=== PATIENT | female | born 1940 | race Caucasian/White ===

== ENCOUNTER 2017-09-26 12:56 | Emergency (ER) | payer MEDICARE ==
[2017-09-26 14:29] VITALS: BP 135/70
--- NOTE | 2017-09-26 14:36 | UC ---
Skin Complaint HPI - HPI Summary HPI Summary: Pt c/o sudden onset of itchy rash that began 1 week ago and has worsened over the last few days. - History of Current Complaint Time Seen by Provider: 09/26/17 14:12 Stated Complaint: SKIN COMPLAINT Hx Obtained From: Patient ?: No Onset/Duration: Sudden Onset, Worse Since - onset Skin Exposure Onset/Duration: Weeks Ago - 1 Timing: Constant Onset Severity: Mild Current Severity: Moderate Pain Intensity: 0 Location: Generalized Character: Pruritus, Redness, Raised Aggravating Factor(s): Nothing Alleviating Factor(s): Unknown Associated Signs & Symptoms: Positive: Rash Related History: Possible Reaction to: Insect - Allergy/Home Medications Allergies/Adverse Reactions: Allergies Allergy/AdvReac Type Severity Reaction Status Date / Time hydrocodone Allergy Constipatio Verified 09/26/17 14:17 n neomycin Allergy Rash Verified 09/26/17 14:17 oxycodone Allergy Headache Verified 09/26/17 14:17 Penicillins Allergy Rash Verified 09/26/17 14:17 propoxyphene Allergy Headache Verified 09/26/17 14:17 Obzahhy-[id number] Reductase Allergy Muscle Ache Verified 09/26/17 14:17 Inhibitor salt tablets AdvReac Vomiting Uncoded 09/26/17 14:17 Home Medications: Home Medications ALPRAZolam TAB* [Xanax TAB*] 0.5 mg PO TID PRN 09/26/17 [History Confirmed 09/26] Levothyroxine TAB* [Synthroid TAB*] 50 mcg PO DAILY 09/26/17 [History Confirmed 09/26/17] Loratadine 10 mg PO DAILY PRN 09/26/17 [History Confirmed 09/26/17] Metoclopramide TAB* [Reglan TAB*] 5 mg PO Q8H 09/26/17 [History Confirmed ] Review of Systems Constitutional: Negative Skin: Rash Eyes: Negative ENT: Negative Respiratory: Negative Cardiovascular: Negative Gastrointestinal: Negative Genitourinary: Negative Motor: Negative Neurovascular: Negative Musculoskeletal: Negative Neurological: Negative Psychological: Negative Is Patient Immunocompromised?: No All Other Systems Reviewed And Are Negative: Yes PMH/Surg Hx/FS Hx/Imm Hx Previously Healthy: Yes Endocrine History: Hypothyroidism Cardiovascular History: Cardiac Disease Psychological History: Anxiety - Surgical History Surgical History: Yes Surgery Procedure, Year, and Place: hysterectomy. appendectomy. fissure. sphincter repair. deviated septum. benign growth on nose. gall bladder removed - Family History Known Family History: Positive: Cardiac Disease - Social History Occupation: Retired Lives: Alone Alcohol Use: None Substance Use Type: None Smoking Status (MU): Former Smoker Have You Smoked in the Last Year: No When Did the Patient Quit Smoking/Using Tobacco: 2010 Physical Exam Triage Information Reviewed: Yes Appearance: Well-Appearing Vital Signs: Initial Vital Signs Temp 97.9 F 09/26/17 14:25 Pulse 65 09/26/17 14:25 Resp 18 09/26/17 14:25 BP 135/70 09/26/17 14:25 Pulse Ox 97 09/26/17 14:25 Vital Signs Reviewed: Yes Eye Exam: Normal ENT: Positive: Hearing grossly normal Neck exam: Normal Respiratory Exam: Normal Respiratory: Positive: No respiratory distress Musculoskeletal Exam: Normal Neurological Exam: Normal Psychological Exam: Normal Skin Exam: Other - multiple scabs upper extremities, trunk,betgween finger, lucila tracts Skin: Positive: rashes Course/Dx - Differential Diagnoses - Skin Complaint Differential Diagnoses: Contact Dermatitis, Scabies - Diagnoses Provider Diagnoses: scabies Discharge - Sign-Out/Discharge Documenting (check all that apply): Discharge - Discharge Plan Condition: Stable Disposition: HOME Prescriptions: Cetirizine* [ZyrTEC 10 MG TAB*] 10 mg PO DAILY #10 tab Permethrin 5% CREAM* 1 applic TOPICAL SEE INSTRUCTIONS #1 tube predniSONE TAB* [Deltasone TAB*] 20 mg PO DAILY #4 tab Patient Education Materials: Scabies (ED) Referrals: SONYA Mathwes [Primary Care Provider] - If Needed - Billing Disposition and Condition Condition: STABLE Disposition: HOME
== END 2017-09-26 14:48 | disposition home or self-care (01) ==
LOC: UCCORT 12:56
DX: B86 Scabies (principal); Z87.891 Personal history of nicotine dependence; Z88.3 Allergy status to other anti-infective agents; Z88.0 Allergy status to penicillin; Z88.5 Allergy status to narcotic agent; Z88.8 Allergy status to other drugs, medicaments and biological substances
CPT/HCPCS: 99212; G0463

== ENCOUNTER 2017-10-12 13:18 | Emergency (ER) | payer MEDICARE ==
[2017-10-12 14:24] VITALS: BP 96/63
--- NOTE | 2017-10-12 14:37 | UC ---
Skin Complaint HPI - HPI Summary HPI Summary: Pt presents with c/o pruritic skin around neck and scalp. Pt was treated for scabies a "couple weeks ago" and states symptoms have improved except around neck and on scalp. - History of Current Complaint Chief Complaint: [facility] Time Seen by Provider: 10/12/17 14:25 Stated Complaint: SKIN COMPLAINT Hx Obtained From: Patient ?: No Onset/Duration: Sudden Onset Skin Exposure Onset/Duration: Weeks Ago Timing: Constant Onset Severity: Mild Current Severity: Mild Pain Intensity: 5 Location: Discrete Character: Pruritus, Redness, Raised Aggravating Factor(s): Touch Alleviating Factor(s): Other - previous prescrition. Associated Signs & Symptoms: Positive: Rash Related History: Possible Reaction to: Insect - scabies - Allergy/Home Medications Allergies/Adverse Reactions: Allergies Allergy/AdvReac Type Severity Reaction Status Date / Time hydrocodone Allergy Constipatio Verified 09/26/17 14:17 n neomycin Allergy Rash Verified 09/26/17 14:17 oxycodone Allergy Headache Verified 09/26/17 14:17 Penicillins Allergy Rash Verified 09/26/17 14:17 propoxyphene Allergy Headache Verified 09/26/17 14:17 Yaicfak-Jzh-Psf Reductase Allergy Muscle Ache Verified 09/26/17 14:17 Inhibitor salt tablets AdvReac Vomiting Uncoded 09/26/17 14:17 Home Medications: Home Medications Omeprazole 20 mg PO DAILY 10/12/17 [History Confirmed 10/12/17] Review of Systems Constitutional: Negative Skin: Rash Eyes: Negative ENT: Negative Respiratory: Negative Cardiovascular: Negative Gastrointestinal: Negative Genitourinary: Negative Motor: Negative Neurovascular: Negative Musculoskeletal: Negative Neurological: Negative Psychological: Negative Is Patient Immunocompromised?: No All Other Systems Reviewed And Are Negative: Yes PMH/Surg Hx/FS Hx/Imm Hx Previously Healthy: Yes Cardiovascular History: Cardiac Disease - Surgical History Surgical History: Yes Surgery Procedure, Year, and Place: hysterectomy. appendectomy. fissure. sphincter repair. deviated septum. benign growth on nose. gall bladder removed - Family History Known Family History: Positive: Cardiac Disease - Social History Occupation: Retired Lives: Alone Alcohol Use: None Substance Use Type: None Smoking Status (MU): Former Smoker Have You Smoked in the Last Year: No When Did the Patient Quit Smoking/Using Tobacco: 2010 Physical Exam Triage Information Reviewed: Yes Appearance: Well-Appearing Vital Signs: Initial Vital Signs Temp 98 F 10/12/17 14:17 Pulse 74 10/12/17 14:17 Resp 17 10/12/17 14:17 BP 96/63 10/12/17 14:17 Pulse Ox 98 10/12/17 14:17 Vital Signs Reviewed: Yes Eye Exam: Normal ENT: Positive: Hearing grossly normal Dental Exam: Other Neck exam: Other - lucila tracts, upper chext and around base of neck Respiratory Exam: Normal Cardiovascular Exam: Normal Musculoskeletal Exam: Normal Neurological Exam: Normal Psychological Exam: Normal Skin: Positive: rashes Course/Dx - Differential Diagnoses - Skin Complaint Differential Diagnoses: Scabies, Urticaria - Diagnoses Provider Diagnoses: scabies Discharge - Sign-Out/Discharge Documenting (check all that apply): Discharge/Admit/Transfer - Discharge Plan Condition: Stable Disposition: HOME Prescriptions: Permethrin 5% CREAM* 1 applic TOPICAL SEE INSTRUCTIONS #1 tube Patient Education Materials: Scabies (ED) Referrals: SONYA Mathews [Primary Care Provider] - If Needed - Billing Disposition and Condition Condition: STABLE Disposition: HOME
== END 2017-10-12 14:44 | disposition home or self-care (01) ==
LOC: UCCORT 13:18
DX: B86 Scabies (principal); Z88.1 Allergy status to other antibiotic agents; Z88.5 Allergy status to narcotic agent; Z88.0 Allergy status to penicillin; Z88.8 Allergy status to other drugs, medicaments and biological substances; Z87.891 Personal history of nicotine dependence
CPT/HCPCS: 99212; G0463